=== PATIENT | female | born 1945 | race Hispanic/Latino ===

== ENCOUNTER 2018-12-11 11:09 | Observation (INO) | payer MEDICARE, BC ==
[2018-12-11 11:10] VITALS: BMI 20.9
[2018-12-11 12:17] LABS: BASO # 0.1 K/uL (0.0-0.2); BASO % 1.1 % (0.0-2.0); EOS % 0.3 % (0.0-4.0); HEMOGLOBIN 13.5 g/dL (11.0-16.0); LYMPH # 0.9 K/uL (1.0-4.3); LYMPH % 17.7 % (20.0-40.0); MEAN CELL VOLUME 103.6 fL (81.0-99.0); MEAN CORPUSCULAR HEMOGLOBIN 34.5 pg (27.0-31.0); MEAN CORPUSCULAR HGB CONC 33.3 g/dL (33.0-37.0); MEAN PLATELET VOLUME 7.3 fL (7.2-11.7); MONO # 0.4 K/uL (0.0-0.8); MONO % 7.8 % (0.0-10.0); NEUT # 3.5 K/uL (1.8-7.0); NEUT % 73.1 % (50.0-75.0); RBC 3.92 Mil/uL (3.80-5.20); RED CELL DISTRIBUTION WIDTH 13.6 % (11.5-14.5); WHITE BLOOD COUNT 4.8 K/uL (4.8-10.8)
[2018-12-11 12:32] LABS: ALB/GLOB RATIO 1.6 (1.0-2.1); ALBUMIN 4.5 g/dL (3.5-5.0); ALT/SGPT 20 U/L (9-52); AST/SGOT 27 U/L (14-36); BLOOD UREA NITROGEN 11 mg/dL (7-17); CALCIUM 9.1 mg/dl (8.6-10.4); GFR NON-AFRICAN AMERICAN > 60
--- NOTE | 2018-12-11 12:42 | C.PDOC ---
History Of Present Illness 73 y/o female presents to the ED, sent in by Dr. Boyce for 3 day history of weakness. Patient has complaints of generalized weakness and dizziness. She also notes the left side of her face feels weak, and food is falling out on that side when eating. No other extremity involvement or weakness. Otherwise she denies any visual changes, chest pain, SOB, nausea, vomiting, or other complaints. Time Seen by Provider: 12/11/18 11:49 Chief Complaint (Nursing): Weakness/Neurological Deficit History Per: Patient History/Exam Limitations: no limitations Onset/Duration Of Symptoms: Days (3) Current Symptoms Are (Timing): Still Present Past Medical History Reviewed: Historical Data, Nursing Documentation, Vital Signs Vital Signs: Last Vital Signs Temp 97.8 F 12/11/18 11:20 Pulse 67 12/11/18 11:20 Resp 20 12/11/18 11:20 BP 162/78 H 12/11/18 11:20 Pulse Ox 98 12/11/18 11:20 - Medical History PMH: Deep Vein Thrombosis (left leg), Malignancy (retal CA) Denies: Chronic Kidney Disease Surgical History: Cholecystectomy, Coronary Stent - [facility] Procedures SERUM TRANSFUSION NEC (05/03/15) Family History: States: Unknown Family Hx - Social History Hx Tobacco Use: No Hx Alcohol Use: No Hx Substance Use: No - Immunization History Hx Tetanus Toxoid Vaccination: Yes Hx Influenza Vaccination: Yes Hx Pneumococcal Vaccination: Yes Review Of Systems Except As Marked, All Systems Reviewed And Found Negative. Constitutional: Positive for: Weakness (generalized). Negative for: Fever, Sweats Cardiovascular: Negative for: Chest Pain Respiratory: Negative for: Cough, Shortness of Breath Gastrointestinal: Negative for: Nausea, Vomiting Musculoskeletal: Negative for: Neck Pain, Back Pain Neurological: Positive for: Weakness (left face), Dizziness. Negative for: Numbness, Change in Speech, Headache Physical Exam - Physical Exam Appears: Non-toxic, No Acute Distress Skin: Warm, Dry, No Rash Head: Atraumatic, Normacephalic Eye(s): bilateral: Normal Inspection, PERRL, EOMI Oral Mucosa: Moist Neck: Normal ROM, Supple Chest: Symmetrical Cardiovascular: Rhythm Regular, No Murmur Respiratory: Normal Breath Sounds, No Rales, No Rhonchi, No Wheezing Gastrointestinal/Abdominal: Soft, No Tenderness, No Distention Extremity: Bilateral: Atraumatic, Normal Color And Temperature, Normal ROM (moving all extremities, equal strength bilaterally) Pulses: Left Radial: Normal, Right Radial: Normal Neurological/Psych: Oriented x3, Normal Speech, Normal Cranial Nerves, Normal Motor, Normal Sensation, Other (No facial droop noted) ED Course And Treatment - Laboratory Results Result Diagrams: 12/11/18 12:11 12/11/18 12:11 Lab Results: Total Bilirubin 0.5 mg/dL (0.2-1.3) 12/11/18 12:11 AST 27 U/L (14-36) 12/11/18 12:11 ALT 20 U/L (9-52) 12/11/18 12:11 Alkaline Phosphatase 92 U/L (38-126) 12/11/18 12:11 Total Protein 7.3 g/dL (6.3-8.3) 12/11/18 12:11 Albumin 4.5 g/dL (3.5-5.0) 12/11/18 12:11 Globulin 2.8 gm/dL (2.2-3.9) 12/11/18 12:11 Albumin/Globulin Ratio 1.6 (1.0-2.1) 12/11/18 12:11 ECG: Interpreted By Me ECG Rhythm: Sinus Rhythm Interpretation Of ECG: Normal intervals, Normal axis, Occasional PAC and PVC, No ST or T wave abnormalities Rate From EC O2 Sat by Pulse Oximetry: 98 (RA) Pulse Ox Interpretation: Normal - Other Rad CXR X-Ray: Read By Radiologist Interpretation: Accession No. : [id number]. Patient Name / ID : JINNY RANDLE / [id number]. Exam Date : 12/11/2018 12:14:15 ( Approved ). Study Comment : Sex / Age : F / 73Y. Creator : Susie Montejo. Dictator : Marsha Lu MD. Party Plan Sales Consultant : Open Source Developer : Marsha Lu MD. Approver2 : Report Date : 12/11/2018 12:24:25. My Comment : . Date of service: 12/11/2018. PROCEDURE: CHEST RADIOGRAPH, 1 VIEW. HISTORY: Chest pain. COMPARISON: 09/22/2014. FINDINGS: LUNGS: The lungs are hyperinflated and there is peribronchial thickening with chronic changes in both lungs. No focal consolidation. PLEURA: No pneumothorax or pleural effusion. CARDIOVASCULAR: The heart is normal in size. There are aortic atherosclerotic calcifications present. OSSEOUS STRUCTURES: Within normal limits for the patient's age. VISUALIZED UPPER ABDOMEN: Normal. OTHER FINDINGS: None. IMPRESSION: No active pulmonary disease. COPD. - CT Scan/US Head CT Other Rad Studies (CT/US): Read By Radiologist, Radiology Report Reviewed CT/US Interpretation: Accession No. : [id number]. Patient Name / ID : JINNY RANDLE / [id number]. Exam Date : 12/11/2018 12:29:44 ( Approved ). Study Comment : Sex / Age : F / 73Y. Creator : Amanda Sosa. Dictator : Marsha Lu MD. Party Plan Sales Consultant : Open Source Developer : Marsha Lu MD. Approver2 : Report Date : 12/11/2018 12:37:47. My Comment : . Date of service: 12/11/2018. PROCEDURE: CT HEAD WITHOUT CONTRAST. HISTORY: dizziness. COMPARISON: None available. TECHNIQUE: Axial computed tomography images were obtained through the head/brain without intravenous contrast. Radiation dose: Total exam DLP = 1039 .23 mGy-cm. This CT exam was performed using one or more of the following dose reduction techniques: Automated exposure control, adjustment of the mA and/or kV according to patient size, and/or use of iterative reconstruction technique. FINDINGS: HEMORRHAGE: No intracranial hemorrhage. BRAIN: There is cystic encephalomalacia in the right posterior parietal lobe. There are mild chronic microangiopathic changes. There is no mass, mass effect or abnormal extra-axial fluid collection. The midline sagittal structures are normal. VENTRICLES: There is mild age-related global parenchymal volume loss and proportionate enlargement of the ventricles and cortical sulci. CALVARIUM: There is no calvarial fracture or extracranial soft tissue swelling. PARANASAL SINUSES: Predominantly clear. MASTOID AIR CELLS: The right mastoid air cells are underdeveloped. The left mastoid air cells are clear. OTHER FINDINGS: None. IMPRESSION: 1. No acute intracranial abnormality. 2. 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 3. Mild chronic microangiopathic changes and mild age-related global parenchymal volume loss. Medical Decision Making Medical Decision Making: Impression: Dizziness Initial Plan: - Blood work - EKG - Chest x-ray - CT Head Discussed with PMD Dr. Boyce, will admit patient for observation of dizziness. Disposition Discussed With Dr.: Iveth Boyce Doctor Will See Patient In The: Hospital Counseled Patient/Family Regarding: Studies Performed, Diagnosis - Disposition Disposition: HOSPITALIZED Disposition Time: 12:49 Condition: FAIR - Clinical Impression Clinical Impression: Dizziness - Scribe Statement The provider has reviewed the documentation as recorded by the Angelina Kiser Provider Attestation: All medical record entries made by the Angelina were at my direction and personally dictated by me. I have reviewed the chart and agree that the record accurately reflects my personal performance of the history, physical exam, medical decision making, and the department course for this patient. I have also personally directed, reviewed, and agree with the discharge instructions and disposition.
[2018-12-11 12:45] LABS: B-TYPE NATRIURETIC PEPTIDE 218 pg/mL (0-900)
--- NOTE | 2018-12-11 12:57 | CT ---
Date of service: 12/11/2018 PROCEDURE: CT HEAD WITHOUT CONTRAST. HISTORY: dizziness COMPARISON: None available. TECHNIQUE: Axial computed tomography images were obtained through the head/brain without intravenous contrast. Radiation dose: Total exam DLP = 1039.23 mGy-cm. This CT exam was performed using one or more of the following dose reduction techniques: Automated exposure control, adjustment of the mA and/or kV according to patient size, and/or use of iterative reconstruction technique. FINDINGS: HEMORRHAGE: No intracranial hemorrhage. BRAIN: There is cystic encephalomalacia in the right posterior parietal lobe. There are mild chronic microangiopathic changes. There is no mass, mass effect or abnormal extra-axial fluid collection. The midline sagittal structures are normal. VENTRICLES: There is mild age-related global parenchymal volume loss and proportionate enlargement of the ventricles and cortical sulci. CALVARIUM: There is no calvarial fracture or extracranial soft tissue swelling. PARANASAL SINUSES: Predominantly clear. MASTOID AIR CELLS: The right mastoid air cells are underdeveloped. The left mastoid air cells are clear. OTHER FINDINGS: None. IMPRESSION: 1. No acute intracranial abnormality. 2. 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 3. Mild chronic microangiopathic changes and mild age-related global parenchymal volume loss.
--- NOTE | 2018-12-11 12:58 | RAD ---
Date of service: 12/11/2018 PROCEDURE: CHEST RADIOGRAPH, 1 VIEW HISTORY: Chest pain COMPARISON: 09/22/2014. FINDINGS: LUNGS: The lungs are hyperinflated and there is peribronchial thickening with chronic changes in both lungs. No focal consolidation. PLEURA: No pneumothorax or pleural effusion. CARDIOVASCULAR: The heart is normal in size. There are aortic atherosclerotic calcifications present. OSSEOUS STRUCTURES: Within normal limits for the patient's age. VISUALIZED UPPER ABDOMEN: Normal. OTHER FINDINGS: None. IMPRESSION: No active pulmonary disease. COPD.
--- NOTE | 2018-12-11 15:51 | CP.PCM.CON ---
History of Present Illness - History of Present Illness History of Present Illness: Neurology Consultation Note: Consult requested by Dr. Boyce Mrs. Nair is a 73-year-old woman with a past medical history of hypertension and previous rectal cancer s/p resection with colostomy, who was sent to the ED by Dr. Boyce for notable left facial weakness and dizziness for several days. She had a headache on Friday and has been having these types of symptoms since then. She came to the ED today when the dizziness, light-headedness appeared to be getting worse. CT scan of the head showed a chronic right posterior parietal lobe infarct, but no acute findings. Review of Systems - Constitutional Constitutional: As Per HPI - EENT Eyes: absent: As Per HPI, Blind Spots, Blurred Vision, Change in Vision, Decre ased Night Vision, Diplopia, Discharge, Dry Eye, Exophthalmos, Floaters, Irritation, Itchy Eyes, Loss of Peripheral Vision, Pain, Photophobia, Requires Corrective Lenses, Sees Flashes, Spots in Vision, Tunnel Vision, Other Visual Disturbances, Loss of Vision, Other Ears: absent: As Per HPI, Decreased Hearing, Ear Discharge, Ear Pain, Tinnitus, Abnormal Hearing, Disequilibrium, Dizziness, Other Nose/Mouth/Throat: absent: As Per HPI, Epistaxis, Nasal Congestion, Nasal Discharge, Nasal Obstruction, Nasal Trauma, Nose Pain, Post Nasal Drip, Sinus P ain, Sinus Pressure, Bleeding Gums, Change in Voice, Dental Pain, Dry Mouth, Dysphagia, Halitosis, Hoarsness, Lip Swelling, Mouth Lesions, Mouth Pain, Odynophagia, Sore Throat, Throat Swelling, Tongue Swelling, Facial Pain, Neck Pain, Neck Mass, Other - Cardiovascular Cardiovascular: absent: As Per HPI, Acrocyanosis, Chest Pain, Chest Pain at Rest, Chest Pain with Activity, Claudication, Diaphoresis, Dyspnea, Dyspnea on Exertion, Edema, Irregular Heart Rhythm, Pain Radiating to Arm/Neck/Jaw, Leg Edema, Leg Ulcers, Lightheadedness, Orthopnea, Palpitations, Paroxysmal Nocturnal Dyspnea, Pedal Edema, Radiating Pain, Rapid Heart Rate, Slow Heart Rate, Syncope, Other - Respiratory Respiratory: absent: As Per HPI, Cough, Dyspnea, Hemoptysis, Dyspnea on Exertion, Wheezing, Snoring, Stridor, Pain on Inspiration, Chest Congestion, Excessive Mucous Production, Change in Mucous Color, Pain with Coughing, Other - Gastrointestinal Gastrointestinal: absent: As Per HPI, Abdominal Pain, Belching, Bloating, Change in Bowel Habits, Change in Stool Character, Coffee Ground Emesis, Constipation, Cramping, Diarrhea, Dyspepsia, Dysphagia, Early Satiety, Excessive Flatus, Fecal Incontinence, Heartburn, Hematemesis, Hematochezia, Loose Stools, Melena, Nausea, Odynophagia, Temesmus, Vomiting, Other - Musculoskeletal Musculoskeletal: absent: As Per HPI, Abnormal Gait, Arthralgias, Atrophy, Back Pain, Deformity, Joint Swelling, Limited Range of Motion, Loss of Height, Muscle Cramps, Muscle Weakness, Myalgias, Neck Pain, Numbness, Radiating Pain into Limb, Stiffness, Tingling, Other - Neurological Neurological: As Per HPI - Endocrine Endocrine: absent: As Per HPI, Change in Body Appearance, Change in Libido, Cold Intolorance, Deepening of Voice, Excessive Sweating, Fatigue, Flushing, Heat Intolorance, Increase in Ring/Shoe/Hat Size, Palpitations, Polydipsia, Reymundo yphagia, Polyuria, Other - Hematologic/Lymphatic Hematologic: absent: As Per HPI, Easy Bleeding, Easy Bruising, Lymphadenopathy, Other Past Patient History - Past Medical History & Family History Past Medical History?: Yes - Past Social History Smoking Status: Never Smoked - CARDIAC Other/Comment: angiogram on ble - PULMONARY Hx Respiratory Disorders: No - NEUROLOGICAL Hx Neurological Disorder: No - HEENT Other/Comment: glasses - RENAL Hx Chronic Kidney Disease: No - ENDOCRINE/METABOLIC Hx Endocrine Disorders: No - HEMATOLOGICAL/ONCOLOGICAL Hx Cancer: Yes Other/Comment: rectal cancer - MUSCULOSKELETAL/RHEUMATOLOGICAL Hx Musculoskeletal Disorders: No Hx Falls: No - GASTROINTESTINAL Hx Colostomy: Yes - GENITOURINARY/GYNECOLOGICAL Hx Genitourinary Disorders: No - PSYCHIATRIC Hx Substance Use: No - SURGICAL HISTORY Hx Cholecystectomy: Yes Hx Coronary Stent: Yes - ANESTHESIA Hx Anesthesia: Yes Hx Anesthesia Reactions: No Meds Allergies/Adverse Reactions: Allergies Allergy/AdvReac Type Severity Reaction Status Date / Time No Known Allergies Allergy Verified 05/03/15 20:50 Physical Exam - Constitutional Appears: Well - Head Exam Head Exam: ATRAUMATIC, NORMAL INSPECTION, NORMOCEPHALIC - Eye Exam Eye Exam: EOMI, Normal appearance, PERRL Pupil Exam: NORMAL ACCOMODATION, PERRL - ENT Exam ENT Exam: Mucous Membranes Moist, Normal Exam - Neck Exam Neck exam: Positive for: Normal Inspection - Respiratory Exam Respiratory Exam: Clear to Auscultation Bilateral, NORMAL BREATHING PATTERN - Cardiovascular Exam Cardiovascular Exam: REGULAR RHYTHM, +S1, +S2 - GI/Abdominal Exam GI & Abdominal Exam: Normal Bowel Sounds, Soft. absent: Tenderness Additional comments: colostomy bag noted - Rectal Exam Rectal Exam: NORMAL INSPECTION - Extremities Exam Extremities exam: Positive for: normal inspection - Back Exam Back exam: NORMAL INSPECTION - Neurological Exam Neurological exam: Alert, CN II-XII Intact, Normal Gait, Oriented x3, Reflexes Normal Additional comments: decreased sensation of the left side of the face, left upper extremity pronator drift noted, weakness of left side of the face to "cheek puff". Coordination is intact. - Psychiatric Exam Psychiatric exam: Normal Affect, Normal Mood - Skin Skin Exam: Dry, Intact, Normal Color, Warm Results - Vital Signs Recent Vital Signs: Last Vital Signs Temp 97.8 F 12/11/18 11:20 Pulse 67 12/11/18 11:20 Resp 20 12/11/18 11:20 BP 162/78 H 12/11/18 11:20 Pulse Ox 98 12/11/18 13:55 - Labs Result Diagrams: 12/11/18 12:11 12/11/18 12:11 Labs: Laboratory Results - last 24 hr 12/11/18 12/11/18 12:11 12:11 WBC 4.8 D RBC 3.92 Hgb 13.5 D Hct 40.6 MCV 103.6 H D MCH 34.5 H MCHC 33.3 RDW 13.6 Plt Count 505 H D MPV 7.3 Neut % (Auto) 73.1 Lymph % (Auto) 17.[address] [place] % (Auto) 7.8 Eos % (Auto) 0.3 Baso % (Auto) 1.1 Neut # (Auto) 3.5 Lymph # (Auto) 0.[address] [place] # (Auto) 0.4 Eos # (Auto) 0.0 Baso # (Auto) 0.1 Sodium 138 Potassium 4.3 Chloride 105 Carbon Dioxide 24 Anion Gap 14 BUN 11 Creatinine 0.7 Est GFR ( Amer) > 60 Est GFR (Non-Af Amer) > 60 Random Glucose 101 Calcium 9.1 Total Bilirubin 0.5 AST 27 ALT 20 Alkaline Phosphatase 92 Troponin I < 0.0120 NT-Pro-B Natriuret Pep 218 Total Protein 7.3 Albumin 4.5 Globulin 2.8 Albumin/Globulin Ratio 1.6 Assessment & Plan (1) Ischemic stroke Assessment and Plan: The patient does have an old stroke on the CT head, and may have a new one d eveloping as well with these new symptoms. I recommend admission and further work-up. I recommend the followin. Telemetry 2. MRI brain without contrast, MRA of the head/neck without contrast 3. Echocardiogram 4. Check lipid panel, HbA1c, B12, folate, TSH, T3/4, vitamin D levels and coags 5. Aspirin 81 mg daily 6. Give statin to keep LDL below 70 7. PT/OT eval and treatment if needed 8. Permissive HTN for the next 24 hours (treat BP higher than 220/110 mm Hg for the next 24 hours) 9. Case management consult Thank you for this consultation. Status: Acute
--- NOTE | 2018-12-11 23:28 | CP.PCM.HP ---
History of Present Illness - History of Present Illness History of Present Illness: Chief complaint: Drooling of the left side of the cheek. HPI: 73-year-old female with a history of hypertension, history of rectal cancer, status post resection, seen by me from the office because of the left-sided facial weakness and dizziness. Patient is also had an episode of weakness in the left hand, dropping objects from the left hand. Patient was having few episodes of dizziness. In the past the patient had a few episodes of a COPD exacerbation Past medical history: Rectal cancer, thrombocytosis, deep venous thrombosis, COPD, hypertension. Allergies no known drug allergy Patient is an ex-smoker. Family history noncontributory Review of system noted from the chart On examination: HEENT: Patient has left facial weakness. Numbness of the and slight weakness in the left facial area noted. Patient also has a weakness in the left upper extremity. Chest good air entry Regular cardiac sounds noted Nontender abdomen. Patient has a colostomy Extremities no pedal edema Patient labs reviewed Nonspecific. CT scan of the head showing evidence of right Parietal area infarct noted old. MRI of the brain showing evidence of subacute infarct in the right parietal area noted. No arterial deformities noted Assessment and recommendation: Patient is a 72-year-old female with a history of rectal cancer status post a colostomy thrombocytosis history of DVT admitted to the hospital with a possible CVA. Patient is currently being observed. Will get the neurological evaluation and follow-up. She will do echocardiogram, carotid Doppler. We will place the patient on aspirin. Patient is already on the Coumadin 1 mg as a prophylaxis for DVT. We will start the patient on statins Bronchodilators and will follow the patient Possible discharge plan tomorrow Present on Admission - Present on Admission Any Indicators Present on Admission: No History of DVT/PE: No History of Uncontrolled Diabetes: No Urinary Catheter: No Decubitus Ulcer Present: No Past Patient History - Past Medical History & Family History Past Medical History?: Yes - Past Social History Smoking Status: Never Smoked - CARDIAC Other/Comment: angiogram on ble - PULMONARY Hx Respiratory Disorders: No - NEUROLOGICAL Hx Neurological Disorder: No - HEENT Other/Comment: glasses - RENAL Hx Chronic Kidney Disease: No - ENDOCRINE/METABOLIC Hx Endocrine Disorders: No - HEMATOLOGICAL/ONCOLOGICAL Hx Cancer: Yes Other/Comment: rectal cancer - MUSCULOSKELETAL/RHEUMATOLOGICAL Hx Musculoskeletal Disorders: No Hx Falls: No - GASTROINTESTINAL Hx Colostomy: Yes - GENITOURINARY/GYNECOLOGICAL Hx Genitourinary Disorders: No - PSYCHIATRIC Hx Substance Use: No - SURGICAL HISTORY Hx Cholecystectomy: Yes Hx Coronary Stent: Yes - ANESTHESIA Hx Anesthesia: Yes Hx Anesthesia Reactions: No Meds Allergies/Adverse Reactions: Allergies Allergy/AdvReac Type Severity Reaction Status Date / Time No Known Allergies Allergy Verified 05/03/15 20:50 Results - Vital Signs Recent Vital Signs: Last Vital Signs Temp 97.9 F 12/11/18 15:48 Pulse 82 12/11/18 15:48 Resp 18 12/11/18 15:48 BP 179/83 H 12/11/18 15:48 Pulse Ox 97 12/11/18 15:48 - Labs Result Diagrams: 12/11/18 12:11 12/11/18 12:11 Labs: Laboratory Results - last 24 hr 12/11/18 12/11/18 12:11 12:11 WBC 4.8 D RBC 3.92 Hgb 13.5 D Hct 40.6 MCV 103.6 H D MCH 34.5 H MCHC 33.3 RDW 13.6 Plt Count 505 H D MPV 7.3 Neut % (Auto) 73.1 Lymph % (Auto) 17.7 L [place] % (Auto) 7.8 Eos % (Auto) 0.3 Baso % (Auto) 1.1 Neut # (Auto) 3.5 Lymph # (Auto) 0.9 L [place] # (Auto) 0.4 Eos # (Auto) 0.0 Baso # (Auto) 0.1 Sodium 138 Potassium 4.3 Chloride 105 Carbon Dioxide 24 Anion Gap 14 BUN 11 Creatinine 0.7 Est GFR ( Amer) > 60 Est GFR (Non-Af Amer) > 60 Random Glucose 101 Calcium 9.1 Total Bilirubin 0.5 AST 27 ALT 20 Alkaline Phosphatase 92 Troponin I < 0.0120 NT-Pro-B Natriuret Pep 218 Total Protein 7.3 Albumin 4.5 Globulin 2.8 Albumin/Globulin Ratio 1.6
[2018-12-12 02:53] VITALS: RESP 20; TEMP 97.8
[2018-12-12 07:42] VITALS: PULSE 76
[2018-12-12 07:49] VITALS: BP 147/82
--- NOTE | 2018-12-12 08:11 | CP.PCM.DIS ---
Provider - Provider Date of Admission: 12/11/18 12:48 Attending physician: Iveht Boyce MD Consults: 12/11/18 12:49 Neurology Consult Routine Comment: Consulting Provider: Nino Verde Consulting Physician: Nino Verde Reason for Consult: dizziness Time Spent in preparation of Discharge (in minutes): 45 Hospital Course - Lab Results Lab Results: Most Recent Lab Values WBC 4.8 K/uL (4.8-10.8) D 12/11/18 12:11 RBC 3.92 Mil/uL (3.80-5.20) 12/11/18 12:11 Hgb 13.5 g/dL (11.0-16.0) D 12/11/18 12:11 Hct 40.6 % (34.0-47.0) 12/11/18 12:11 MCV 103.6 fL (81.0-99.0) H D 12/11/18 12:11 MCH 34.5 pg (27.0-31.0) H 12/11/18 12:11 MCHC 33.3 g/dL (33.0-37.0) 12/11/18 12:11 RDW 13.6 % (11.5-14.5) 12/11/18 12:11 Plt Count 505 K/uL (130-400) H D 12/11/18 12:11 MPV 7.3 fL (7.2-11.7) 12/11/18 12:11 Neut % (Auto) 73.1 % (50.0-75.0) 12/11/18 12:11 Lymph % (Auto) 17.7 % (20.0-40.0) L 12/11/18 12:11 [place] % (Auto) 7.8 % (0.0-10.0) 12/11/18 12:11 Eos % (Auto) 0.3 % (0.0-4.0) 12/11/18 12:11 Baso % (Auto) 1.1 % (0.0-2.0) 12/11/18 12:11 Neut # (Auto) 3.5 K/uL (1.8-7.0) 12/11/18 12:11 Lymph # (Auto) 0.9 K/uL (1.0-4.3) L 12/11/18 12:11 [place] # (Auto) 0.4 K/uL (0.0-0.8) 12/11/18 12:11 Eos # (Auto) 0.0 K/uL (0.0-0.7) 12/11/18 12:11 Baso # (Auto) 0.1 K/uL (0.0-0.2) 12/11/18 12:11 Sodium 138 mmol/L (132-148) 12/11/18 12:11 Potassium 4.3 mmol/L (3.6-5.2) 12/11/18 12:11 Chloride 105 mmol/L (98-107) 12/11/18 12:11 Carbon Dioxide 24 mmol/L (22-30) 12/11/18 12:11 Anion Gap 14 (10-20) 12/11/18 12:11 BUN 11 mg/dL (7-17) 12/11/18 12:11 Creatinine 0.7 mg/dL (0.7-1.2) 12/11/18 12:11 Est GFR ( Amer) > 60 12/11/18 12:11 Est GFR (Non-Af Amer) > 60 12/11/18 12:11 Random Glucose 101 mg/dL (65-105) 12/11/18 12:11 Calcium 9.1 mg/dl (8.6-10.4) 12/11/18 12:11 Total Bilirubin 0.5 mg/dL (0.2-1.3) 12/11/18 12:11 AST 27 U/L (14-36) 12/11/18 12:11 ALT 20 U/L (9-52) 12/11/18 12:11 Alkaline Phosphatase 92 U/L (38-126) 12/11/18 12:11 Troponin I < 0.0120 ng/mL (0.00-0.120) 12/11/18 12:11 NT-Pro-B Natriuret Pep 218 pg/mL (0-900) 12/11/18 12:11 Total Protein 7.3 g/dL (6.3-8.3) 12/11/18 12:11 Albumin 4.5 g/dL (3.5-5.0) 12/11/18 12:11 Globulin 2.8 gm/dL (2.2-3.9) 12/11/18 12:11 Albumin/Globulin Ratio 1.6 (1.0-2.1) 12/11/18 12:11 - Hospital Course Hospital Course: Chief complaint: Drooling of the left side of the cheek. HPI: 73-year-old female with a history of hypertension, history of rectal cancer, status post resection, seen by me from the office because of the left-sided facial weakness and dizziness. Patient is also had an episode of weakness in the left hand, dropping objects from the left hand. Patient was having few episodes of dizziness. In the past the patient had a few episodes of a COPD exacerbation Past medical history: Rectal cancer, thrombocytosis, deep venous thrombosis, COPD, hypertension. Allergies no known drug allergy Patient is an ex-smoker. Family history noncontributory Review of system noted from the chart On examination: HEENT: Patient has left facial weakness. Numbness of the and slight weakness in the left facial area noted. Patient also has a weakness in the left upper extremity. Chest good air entry Regular cardiac sounds noted Nontender abdomen. Patient has a colostomy Extremities no pedal edema Patient labs reviewed Nonspecific. CT scan of the head showing evidence of right Parietal area infarct noted old. MRI of the brain showing evidence of subacute infarct in the right parietal area noted. No arterial deformities noted Assessment and recommendation: Patient is a 72-year-old female with a history of rectal cancer status post a colostomy thrombocytosis history of DVT admitted to the hospital with a possible CVA. Patient is currently being observed. Will get the neurological evaluation and follow-up. She will do echocardiogram, carotid Doppler. We will place the patient on aspirin. Patient is already on the Coumadin 1 mg as a prophylaxis for DVT. We will start the patient on statins Bronchodilators and will follow the patient Possible discharge plan tomorrow Course in the hospital: Patient admitted to the hospital under observation. Patient was seen by neurologist in the emergency room. Recommended to have MRI MRA. Patient had a MRI and MRA. There is a subacute stroke involving the right side of the cerebral cortex. Possibly contributing the weakness of the left side. Today the echocardiogram, carotid Doppler will be done. Patient if it is okay by neurologist will be discharged home today. Patient will need antiplatelets, statins, depending upon the carotid artery vasculature further treatment will be offered. But will wait for neurology to be cleared for discharge. We will follow the patient. Patient had echocardiogram, carotid Doppler today. Wait for the results. Results can be followed up as an outpatient. I will discharge the patient today home now. Call placed up with the neurologist. But meanwhile we will continue aspirin, Crestor, she will also continue hydroxyurea, nebulizer medication. I will follow-up the patient in 1 week as an outpatient. Final diagnosis of subacute CVA involving the left side of the face. Discharge Exam - Head Exam Head Exam: ATRAUMATIC, NORMAL INSPECTION, NORMOCEPHALIC Discharge Plan - Discharge Medications Prescriptions: Aspirin [Aspirin Chewable] 81 mg PO DAILY #30 chew Warfarin [Coumadin] 1 mg PO 1800 #30 tab Rosuvastatin Calcium [Crestor] 5 mg PO HS #30 tab - Follow Up Plan Condition: FAIR Disposition: HOME/ ROUTINE Instructions: Vertigo (a Type of Dizziness), Dizziness, Nonvertigo, (DC)
--- NOTE | 2018-12-12 11:12 | VASCLAB ---
Date of service: 12/12/2018 PROCEDURE: Carotid Duplex Exam. HISTORY: cva COMPARISON: None available. TECHNIQUE: Grayscale and duplex Doppler evaluation of the cervical carotid and vertebral arteries were performed. The common carotid, carotid bifurcations and cervical Internal Carotid Artery (ICA) and proximal External Carotid Artery (ECA) were evaluated. The vertebral arteries were evaluated for gross patency and flow direction. Report prepared by ARLETTE Walters FINDINGS: RIGHT CAROTID ARTERIES: 1. Common Carotid Artery: No significant focal plaque formation of the right common carotid artery. Maximum Peak Systolic velocity: 60.3 cm/sec: End-diastolic velocity 14.2 cm/sec. 2. Carotid Bifurcation: No significant focal plaque formation. Maximum Peak Systolic velocity: 48.3 cm/sec: End-diastolic velocity 14.2 cm/sec. 3. Internal Carotid Artery: No significant plaque formation. Plaque description: 3.1. Proximal Segment: Peak systolic velocity 56.8 cm/sec: End-diastolic velocity 14.1 cm/sec - % stenosis 0-15% 3.2. Middle Segment: Peak systolic velocity 55.8 cm/sec: End-diastolic velocity 18.8 cm/sec - % stenosis 0-15% 3.3. Distal Segment: Peak systolic velocity 54.5 cm/sec: End-diastolic velocity 20.9 cm/sec - % stenosis 0-15% 4. External Carotid Artery: No significant focal plaque formation. Peak systolic velocity 70.9 cm/sec 5. ICA/CCA Ratio: 1 LEFT CAROTID ARTERIES: 1. Common Carotid Artery: No significant focal plaque formation of the left common carotid artery. Maximum Peak Systolic velocity: 74.8 cm/sec: End-diastolic velocity 18.6 cm/sec. 2. Carotid Bifurcation: Heterogeneous plaque formation. Maximum Peak Systolic velocity: 62.0 cm/sec: End-diastolic velocity 16.7 cm/sec. 3. Internal Carotid Artery: Mild plaque formation of the left proximal ICA which does not result in a hemodynamically significant stenosis. Plaque description: Heterogeneous. 5 millimeter focal calcific plaque in the proximal left internal carotid artery. 3.1. Proximal Segment: Peak systolic velocity 66.9 cm/sec: End-diastolic velocity 26.4 cm/sec - % stenosis 16-49% 3.2. Middle Segment: Peak systolic velocity 88.5 cm/sec: End-diastolic velocity 29.9 cm/sec - % stenosis 0-15% 3.3. Distal Segment: Peak systolic velocity 72.2 cm/sec: End-diastolic velocity 27.3 cm/sec - % stenosis 0-15% 4. External Carotid Artery: Minimal plaque formation of the left ECA which does not result in hemodynamically significant stenosis. Peak systolic velocity 82.7 cm/sec 5. ICA/CCA Ratio: 1.2 VERTEBRAL ARTERIES: 1. Right Vertebral Artery: The right vertebral artery flow direction is antegrade. 2. Left Vertebral Artery: The left vertebral artery flow direction is antegrade. OTHER FINDINGS: None significant. IMPRESSION: RIGHT: Duplex scan does not suggest hemodynamically significant stenosis of the right extracranial carotid arteries. LEFT: Duplex scan does suggests mild hemodynamically significant stenosis of the left internal carotid artery.
--- NOTE | 2018-12-12 14:29 | CARD ---
APPROVED REPORT Date of service: 12/12/2018 EXAM: Two-dimensional and M-mode echocardiogram with Doppler and color Doppler. Other Information Quality : GoodRhythm : INDICATION CVA/TIA Dizziness and Vertigo 2D DIMENSIONS IVSd1.2 (0.7-1.1cm)Aortic Root (2D)2.9 (2.0-3.7cm) LVDd3.4 (3.9-5.9cm)LVOT Diameter1.7 (1.8-2.4cm) PWd1.2 (0.7-1.1cm)LVDs2.2 (2.5-4.0cm) FS (%) 33.6 %LVEF (%)63.5 (>50%) LVEF (Espinoza's)68.61 % M-Mode DIMENSIONS Left Atrium (MM)3.32 (2.5-4.0cm)Aortic Root2.80 (2.2-3.7cm) Aortic Cusp Exc.1.25 (1.5-2.0cm) Aortic Valve AoV Peak Ztzsqghr505.9cm/sAoV VTI52.1cmAO Peak GR.24mmHg LVOT Peak Wpsoxcmf405.2cm/sLVOT VTI20.44cmAO Mean GR.12mmHg RAJEEV (VMAX)1.51dc7OEM (VTI)0.89cm2 Mitral Valve MV E Ocrfozdp63.0cm/sMV A Ovpbcizi82.8cm/sE/A ratio0.9 TDI Lateral E' Peak V9.45cm/sMedial E' Peak V9.39cm/sE/Lateral E'9.3 E/Medial E'9.4 Pulmonary Valve PV Peak Uriddzor23.0cm/sPV Peak Grad.2mmHg Tricuspid Valve TR Peak Qljwxsaz424rs/sTR Peak Gr.31hkMjZLSB05pdIh LEFT VENTRICLE The left ventricle is normal size. There is mild concentric left ventricular hypertrophy. The Ejection Fraction is 60-65%. There is normal LV segmental wall motion. The left ventricular diastolic function is normal. RIGHT VENTRICLE The right ventricle is normal size. The right ventricular systolic function is normal. ATRIA The left atrium size is normal. The right atrium size is normal. The interatrial septum is intact with no evidence for an atrial septal defect. AORTIC VALVE The aortic valve is moderately to severely calcified. The aortic valve is probably tri-cuspid. No aortic regurgitation is present. There is mild to moderate valvular aortic stenosis. Calculated aortic valve area is 0.9 cm2 with maximum pressure gradient of 28 mmHg and mean pressure gradient of 14 mmHg. MITRAL VALVE The mitral valve is normal in structure. There is no mitral valve regurgitation noted. TRICUSPID VALVE The tricuspid valve is normal in structure. There is mild tricuspid regurgitation. Right ventricular systolic pressure is estimated at 41 mmHg. There is mild pulmonary hypertension. PULMONIC VALVE The pulmonary valve is normal in structure. GREAT VESSELS The aortic root is normal size. The aortic root displays mild sclerocalcific changes of the aortic root. The IVC is normal in size and collapses >50% with inspiration. PERICARDIAL EFFUSION There is no pericardial effusion. <Conclusion> The left ventricle is normal size. There is mild concentric left ventricular hypertrophy. The Ejection Fraction is 60-65%. The left ventricular diastolic function is normal. The left atrium size is normal. The aortic valve is moderately to severely calcified. The aortic valve is probably tri-cuspid. No aortic regurgitation is present. There is mild to moderate valvular aortic stenosis. Calculated aortic valve area is 0.9 cm2 with maximum pressure gradient of 28 mmHg and mean pressure gradient of 14 mmHg. There is mild tricuspid regurgitation. Right ventricular systolic pressure is estimated at 41 mmHg. There is mild pulmonary hypertension. The aortic root is normal size. The aortic root displays mild sclerocalcific changes of the aortic root. The IVC is normal in size and collapses >50% with inspiration. There is no pericardial effusion.
--- NOTE | 2018-12-12 18:14 | MRI ---
Date of service: 12/11/2018 PROCEDURE: MRI BRAIN WITHOUT CONTRAST HISTORY: CVA COMPARISON: Comparison made with prior CT scan of the brain 12/11/2018. Correlation also made with concurrent MRA brain. TECHNIQUE: Multiplanar, multisequence MR images of the brain were obtained without intravenous contrast enhancement. FINDINGS: HEMORRHAGE: No acute parenchymal, subarachnoid or extra-axial hemorrhage.. No evidence of hemosiderin deposition is identified on gradient echo weighted sequence. DWI: There are restricted diffusion changes seen in the right posterior frontal operculum region extending superiorly into the right frontal cortex near the vertex consistent with acute infarcts. BRAIN PARENCHYMA: Moderate diffuse/confluent chronic periventricular white matter ischemic changes seen right cerebral hemisphere with lesser similar changes left cerebral hemisphere. Discrete chronic infarct left posterior superior parietal lobe with lesser chronic infarct changes anterior superior frontal lobe as well. Multiple more discrete chronic appearing lacunar type infarcts scattered about the deep and subcortical white matter of both cerebral hemispheres. Additionally, there are lacunar type infarcts also seen superior basal nuclei/coronal radiata junction.. There are localized cortical atrophic changes (presumed ex vacuo enlargement) in the right parietal and frontal regions former more so than latter. Mild to moderate generalized volume loss. VENTRICLES: No obstructive hydrocephalus. CRANIUM: Unremarkable. ORBITS: Orbits and contents grossly unremarkable. PARANASAL SINUSES/MASTOIDS: Clear VASCULAR SYSTEM: The visualized major vascular flow voids at skull base patent. OTHER FINDINGS: None. IMPRESSION: There are restricted diffusion changes seen in the right posterior frontal operculum region extending superiorly into the right frontal cortex near the vertex consistent with acute infarcts. Moderate diffuse/confluent chronic periventricular white matter ischemic changes seen right cerebral hemisphere with lesser similar changes left cerebral hemisphere. Discrete chronic infarct left posterior superior parietal lobe with lesser chronic infarct changes anterior superior frontal lobe as well. Multiple more discrete chronic appearing lacunar type infarcts scattered about the deep and subcortical white matter of both cerebral hemispheres. Additionally, there are lacunar type infarcts also seen superior basal nuclei/coronal radiata junction.. There are localized cortical atrophic changes (presumed ex vacuo enlargement) in the right parietal and frontal regions former more so than latter. No acute intracranial hemorrhage. Mild to moderate generalized volume loss. Concordant preliminary report findings provided by overnight radiology service.
--- NOTE | 2018-12-12 18:20 | MRI ---
Date of service: 12/11/2018 PROCEDURE: Magnetic Resonance Angiography Brain HISTORY: cva COMPARISON: None available. TECHNIQUE: 3D time of flight MR angiography of the intracranial arteries was performed. Rotating maximum intensity projection images were generated. FINDINGS: INTERNAL CAROTID ARTERIES: Unremarkable. The skull base, petrous, cavernous and supraclinoid segments are bilaterally widely patient. ANTERIOR CEREBRAL ARTERIES: Asymmetry of the A1 segments, right-sided which is larger in caliber/more dominant than the left side. And A2 segments are widely patent. Smaller distal branches unremarkable, as visualized. MIDDLE CEREBRAL ARTERIES: Unremarkable. M1 and M2 segments are widely patent. Perisylvian branches grossly symmetric. POSTERIOR CIRCULATION: Basilar Artery: Unremarkable. Distal Vertebral Arteries: There is a asymmetry of the distal vertebral arteries right-sided which is smaller in caliber than the left however this is likely a anatomic variation. Posterior Cerebral Arteries: origin of the left posterior cerebral artery with hypoplastic appearing left P1 segment. Posterior Inferior Cerebellar Arteries: Unremarkable. ANEURYSM/ VASCULAR MALFORMATIONS: None. OTHER FINDINGS: None. IMPRESSION: Unremarkable MRA of the brain aside from a anatomic variations mentioned above. No evidence of large aneurysm nor vascular malformation
[2018-12-14 08:02] VITALS: O2SAT 98
--- NOTE | 2018-12-14 12:58 | CARD ---
APPROVED REPORT Date of service: 12/11/2018 EKG Measurement Heart [id number] ND [id number] <Conclusion> Sinus rhythm with premature atrial complexes with aberrant conduction Otherwise normal ECG
== END 2018-12-12 11:25 | disposition home or self-care (01) ==
LOC: C.ER 11:09 → C.9E 12:48 → C.6T 16:08
PROVIDERS: ADMIT Internal Medicine; ATTEND Internal Medicine
DX: R29.810 Facial weakness (principal); I10 Essential (primary) hypertension; Z85.048 Personal history of other malignant neoplasm of rectum, rectosigmoid junction, and anus; Z86.718 Personal history of other venous thrombosis and embolism; Z95.5 Presence of coronary angioplasty implant and graft; R42 Dizziness and giddiness
CPT/HCPCS: 70450; 70544; 70551; 71045; 80053; 83880; 84484; 85025; 92610; 93005; 93306; 93880; 99285; G0378; G8996; G8997